=== PATIENT | male | born 1965 | race Caucasian/White ===

== ENCOUNTER 2023-09-28 08:50 | Emergency (ER) | payer MEDICAID ==
[~2023-09-28] VITALS: Ht 185.4 cm; Wt 80.3 kg
[2023-09-28 09:10] VITALS: BP 127/79; PULSE 73; RESP 18; TEMP 98.4; O2SAT 98
[2023-09-28 09:47] LABS: APPEARANCE,URINE CLEAR (CLEAR); BILIRUBIN,URINE NEGATIVE (NEGATIVE); BLOOD, URINE NEGATIVE (NEGATIVE); COLOR,URINE YELLOW (YELLOW); LEUKOCYTE ESTERASE ,URINE NEGATIVE (NEGATIVE); NITRITE, URINE NEGATIVE (NEGATIVE); PROTEIN,URINE NEGATIVE (NEGATIVE); UGLUCOSE 3+ (NEGATIVE); UROBILINOGEN,URINE 0.2 EU/dL (0.2 - 1)
[2023-09-28] MEDS ORDERED: LOTC TP (10:30)
[2023-09-28] MEDS ORDERED: BACI-352 TP (10:30)
[2023-09-28 10:33] VITALS: BP 126/78; PULSE 76; RESP 18; TEMP 98.2; O2SAT 98
[2023-09-28] MEDS ORDERED: METF-346 PO (10:36)
== END 2023-09-28 10:33 | disposition home or self-care (01) ==
LOC: MED 08:50
DX: N47.7 Other inflammatory diseases of prepuce (principal); E11.9 Type 2 diabetes mellitus without complications; Z98.890 Other specified postprocedural states
CPT/HCPCS: 81003; 82948; 99283

== ENCOUNTER 2023-10-09 10:48 | Emergency (ER) | payer MEDICAID ==
[~2023-10-09] VITALS: Ht 185.4 cm; Wt 130.2 kg
[~2023-10-09 10:48] MED LIST: BACI-352 TP; LOTC TP; METF-346 PO
[2023-10-09 10:53] VITALS: BP 141/79; PULSE 89; RESP 14; TEMP 98; O2SAT 98
[2023-10-09] MEDS ORDERED: KETOROLAC 60 MG/2 ML VIAL IM ONE (11:10)
[2023-10-09] MEDS ORDERED: IBUP-2213 PO (11:21)
[2023-10-09] MEDS ORDERED: ACET-8905 PO (11:21)
== END 2023-10-09 12:10 | disposition home or self-care (01) ==
LOC: MED 10:48
DX: M25.511 Pain in right shoulder (principal); E11.9 Type 2 diabetes mellitus without complications; Z90.49 Acquired absence of other specified parts of digestive tract; Z98.890 Other specified postprocedural states; Z79.899 Other long term (current) drug therapy
CPT/HCPCS: 96372; 99283; J1885